=== PATIENT | male | born 1940 | race Caucasian/White ===

== ENCOUNTER 2018-11-30 13:48 | Observation (INO) ==
[2018-11-30] MEDS ORDERED: FUROSEMIDE 20 MG/2 ML VIAL IV STA (14:21)
[2018-11-30] MEDS ORDERED: NITROGLYCERIN 2% OINT 1 INCH/GM PACK TOP STA (14:21)
[2018-11-30] MEDS ORDERED: ASPIRIN 325 MG TABLET PO STA (14:21)
[2018-11-30] MEDS ORDERED: ONDANSETRON 4 MG/2 ML VIAL IV STA (14:21)
[2018-11-30 14:47] LABS: Basophils % 0.3 % (0.0-0.8); Eosinophils % 0.7 % (0.00-10.9); Hematocrit 45.8 VOL% (42.0-52.0); Hemoglobin 14.4 GM/DL (14.0-18.0); Immature Granulocytes % 0.2 %; Immature Granulocytes Absolute 0.01 #; Lymphocytes % 17.7 % (21.2-54.2); Mean Corpuscular HGB Conc 31.4 GM/DL (32-36); Mean Platelet Volume 10.4 FL (9.6-12.0); Monocytes % 16.5 % (1.7-12.7); Neutrophils % 64.6 % (38.7-73.9); Platelet Count 196 T/CUMM (130-400); Red Blood Count 5.09 MC/CUMM (3.8-5.5); Red Cell Distribution Width 14.9 % (9.3-17.3); White Blood Count 5.8 T/CUMM (4-12)
[2018-11-30 14:56] LABS: PT Patient Result 10.8 SECS (9.6-12.2)
[2018-11-30 15:07] LABS: Bilirubin,Total 1.3 MG/DL (0.2-1.0); Calcium 8.6 MG/DL (8.5-10.1); Total Protein 6.2 G/DL (6.4-8.3)
[2018-11-30 15:30] LABS: Lymphocytes 21 % (20-55); Segmented Neutrophils 70 % (50-85); Total Cells Counted 100
[2018-11-30 15:31] LABS: Anisocytosis Slight; Macrocytosis Slight; Microcytosis Slight; Platelet Estimate Normal; Reactive Lymphocytes 1+
[2018-11-30] MEDS ORDERED: POTASSIUM CHLORIDE 20 MEQ TABLET PO PRN (16:08)
[2018-11-30] MEDS ORDERED: MAGNESIUM SULF RIDER 4 GM in PREMIX 1 EACH IV PRN (16:08)
[2018-11-30] MEDS ORDERED: ONDANSETRON 4 MG/2 ML VIAL IV PRN (16:08)
[2018-11-30] MEDS ORDERED: MAGNESIUM SULF RIDER 2 GM in PREMIX 1 EACH IV PRN (16:08)
[2018-11-30] MEDS ORDERED: ENOXAPARIN 100 MG/ML SYRINGE SUBCUT SCH (16:30)
[2018-11-30] MEDS: APIXABAN 5 MG TABLET PO SCH (20:44)
[2018-11-30] MEDS: METOPROLOL SUCCINATE XL 50 MG TABLET PO SCH (20:44)
[2018-11-30] MEDS: FUROSEMIDE 20 MG/2 ML VIAL IV SCH (20:44)
[2018-11-30] MEDS: ACETAMINOPHEN 325 MG TABLET PO PRN (20:48)
[2018-11-30] MEDS ORDERED: ALLOPURINOL 100 MG TABLET PO SCH (21:00)
[2018-11-30] MEDS ORDERED: predniSONE 5 MG TABLET PO SCH (21:00)
[2018-11-30] MEDS ORDERED: FOLIC ACID 1 MG TABLET PO SCH (21:00)
[2018-12-01 05:37] LABS: Basophils % 0.2 % (0.0-0.8); Eosinophils % 0.6 % (0.00-10.9); Hemoglobin 13.8 GM/DL (14.0-18.0); Immature Granulocytes % 0.4 %; Immature Granulocytes Absolute 0.02 #; Lymphocytes # 0.9 10*3/uL (1.4-4.0); Lymphocytes % 17.6 % (21.2-54.2); Mean Corpuscular HGB Conc 31.4 GM/DL (32-36); Monocytes % 12.4 % (1.7-12.7); Neutrophils % 68.8 % (38.7-73.9); Platelet Count 186 T/CUMM (130-400); Red Blood Count 4.89 MC/CUMM (3.8-5.5); Red Cell Distribution Width 14.8 % (9.3-17.3); White Blood Count 5.3 T/CUMM (4-12)
[2018-12-01] MEDS: ACETAMINOPHEN 325 MG TABLET PO PRN ×2 (05:46→15:03)
[2018-12-01 06:14] LABS: Calcium 8.7 MG/DL (8.5-10.1); Osmolality,Calculated 283.3 MOS/KG (273-304); Risk Ratio 3.45; Thyroid Stimulating Hormone 0.327 uIU/ml (0.358-3.74); VLDL CHOLESTEROL 14.2 MG/DL
[2018-12-01] MEDS ORDERED: LEVOTHYROXINE 50 MCG TABLET PO SCH (06:30)
[2018-12-01] MEDS: FUROSEMIDE 20 MG/2 ML VIAL IV SCH (08:51)
[2018-12-01] MEDS: APIXABAN 5 MG TABLET PO SCH (08:52)
[2018-12-01] MEDS: METOPROLOL SUCCINATE XL 50 MG TABLET PO SCH (08:52)
[2018-12-01] MEDS ORDERED: amLODIPine 2.5 MG TABLET PO SCH (09:00)
[2018-12-01] MEDS ORDERED: LISINOPRIL 20 MG TABLET PO SCH (09:00)
[2018-12-01] MEDS ORDERED: ASPIRIN EC 81 MG TABLET PO SCH (09:00)
[2018-12-01] MEDS ORDERED: PANTOPRAZOLE 40 MG TABLET PO SCH (09:00)
[2018-12-01] MEDS ORDERED: hydroCHLOROthiazide 25 MG TABLET PO SCH (09:00)
[2018-12-01 12:43] VITALS: BP 145/84
== END 2018-12-01 15:09 | disposition home or self-care (01) ==
LOC: N.EDINP 13:48 → N.ED 13:48 → N.EDINP 18:08 → N.TELEN 18:12
PROVIDERS: ADMIT Emergency Medicine; ATTEND Emergency Medicine

== ENCOUNTER 2019-04-22 10:41 | Observation (INO) ==
[2019-04-22] MEDS ORDERED: BISACODYL 5 MG TABLET PO PRN (11:22)
[2019-04-22] MEDS ORDERED: ONDANSETRON 4 MG/2 ML VIAL IV PRN (11:22)
[2019-04-22] MEDS ORDERED: ZALEPLON 5 MG CAPSULE PO PRN (11:22)
[2019-04-22] MEDS ORDERED: MAGNESIUM SULF RIDER 4 GM in PREMIX 1 EACH IV PRN (11:22)
[2019-04-22] MEDS ORDERED: LACTULOSE 20 GM/30 ML UDCUP PO PRN (11:22)
[2019-04-22] MEDS ORDERED: MAGNESIUM SULF RIDER 2 GM in PREMIX 1 EACH IV PRN (11:22)
[2019-04-22] MEDS ORDERED: MORPHINE 4 MG/1 ML VIAL IV PRN (11:22)
[2019-04-22] MEDS ORDERED: POTASSIUM CHLORIDE 20 MEQ TABLET PO PRN (11:22)
[2019-04-22] MEDS ORDERED: traMADol 50 MG TABLET PO PRN (11:30)
[2019-04-22 12:35] LABS: Basophils % 0.1 % (0.0-0.8); Eosinophils % 0.1 % (0.00-10.9); Hemoglobin 15.2 GM/DL (14.0-18.0); Immature Granulocytes % 0.5 %; Immature Granulocytes Absolute 0.04 #; Lymphocytes % 12.2 % (21.2-54.2); Mean Corpuscular Volume 89.7 FL (87-102); Mean Platelet Volume 10.5 FL (9.6-12.0); Monocytes % 7.9 % (1.7-12.7); Neutrophils % 79.2 % (38.7-73.9); Platelet Count 204 T/CUMM (130-400); Red Blood Count 5.46 MC/CUMM (3.8-5.5)
[2019-04-22 12:50] LABS: PT Patient Result 11.3 SECS (9.6-12.2); Partial Thromboplastin Time 31.9 SECS (20.8-36.0)
[2019-04-22 13:08] LABS: Albumin 3.6 G/DL (3.4-5.0); Bilirubin,Total 1.4 MG/DL (0.2-1.0); Calcium 9.1 MG/DL (8.5-10.1); Osmolality,Calculated 282.5 MOS/KG (273-304); Total Protein 7.4 G/DL (6.4-8.3)
[2019-04-22] MEDS ORDERED: diphenhydrAMINE CAP 25 MG CAPSULE PO PRN (15:09)
[2019-04-22] MEDS ORDERED: MAGNESIUM HYDROXIDE SUSP 30 ML UDCUP PO PRN (15:09)
[2019-04-22] MEDS: hydrALAZINE 20 MG/1 ML VIAL IV PRN (15:35)
[2019-04-22] MEDS ORDERED: predniSONE 5 MG TABLET PO SCH (21:00)
[2019-04-22] MEDS ORDERED: FOLIC ACID 1 MG TABLET PO SCH (21:00)
[2019-04-22] MEDS ORDERED: allopurinoL 100 MG TABLET PO SCH (21:00)
[2019-04-22] MEDS ORDERED: PANTOPRAZOLE 40 MG TABLET PO SCH (21:00)
[2019-04-22] MEDS ORDERED: ATORVASTATIN 20 MG TABLET PO SCH (21:00)
[2019-04-22] MEDS: ACETAMINOPHEN 325 MG TABLET PO PRN (21:34)
[2019-04-22] MEDS: carvediloL 6.25 MG TABLET PO SCH (21:35)
[2019-04-22] MEDS: POTASSIUM CHLORIDE 8 MEQ CAPSULE PO SCH (21:35)
[2019-04-23 04:57] LABS: Basophils % 0.3 % (0.0-0.8); Eosinophils # 0.1 10*3/uL (0.0-0.87); Hematocrit 45.7 VOL% (42.0-52.0); Hemoglobin 14.6 GM/DL (14.0-18.0); Immature Granulocytes % 0.3 %; Immature Granulocytes Absolute 0.02 #; Mean Corpuscular HGB Conc 31.9 GM/DL (32-36); Mean Corpuscular Volume 88.1 FL (87-102); Mean Platelet Volume 10.8 FL (9.6-12.0); Monocytes % 12.4 % (1.7-12.7); Platelet Count 194 T/CUMM (130-400); Red Blood Count 5.19 MC/CUMM (3.8-5.5); White Blood Count 6.9 T/CUMM (4-12)
[2019-04-23 05:19] LABS: PT Patient Result 10.7 SECS (9.6-12.2); Partial Thromboplastin Time 28.6 SECS (20.8-36.0)
[2019-04-23 05:24] LABS: Calcium 8.5 MG/DL (8.5-10.1); Osmolality,Calculated 279.8 MOS/KG (273-304); Risk Ratio 3.52; VLDL CHOLESTEROL 16.6 MG/DL
[2019-04-23] MEDS ORDERED: LEVOTHYROXINE 50 MCG TABLET PO SCH (07:00)
[2019-04-23] MEDS: POTASSIUM CHLORIDE 8 MEQ CAPSULE PO SCH (08:29)
[2019-04-23] MEDS: ACETAMINOPHEN 325 MG TABLET PO PRN ×2 (08:30→12:31)
[2019-04-23] MEDS: carvediloL 6.25 MG TABLET PO SCH (08:30)
[2019-04-23] MEDS: hydrALAZINE 20 MG/1 ML VIAL IV PRN (08:32)
[2019-04-23] MEDS ORDERED: hydroCHLOROthiazide 25 MG TABLET PO SCH (09:00)
[2019-04-23] MEDS ORDERED: CYANOCOBALAMIN 500 MCG TABLET PO SCH (09:00)
[2019-04-23] MEDS ORDERED: lisinopriL 20 MG TABLET PO SCH (09:00)
[2019-04-23] MEDS ORDERED: FUROSEMIDE 20 MG TABLET PO SCH (09:00)
[2019-04-23] MEDS ORDERED: PANTOPRAZOLE 40 MG TABLET PO SCH (09:00)
[2019-04-23] MEDS ORDERED: carvediloL 12.5 MG TABLET PO SCH (09:14)
[2019-04-23 13:38] VITALS: BP 134/79
[2019-04-25] MEDS ORDERED: METHOTREXATE 2.5 MG TABLET PO SCH (09:00)
== END 2019-04-23 14:30 | disposition home or self-care (01) ==
LOC: N.TELEN
PROVIDERS: ADMIT Internal Medicine Cardiovascular Disease; ATTEND Internal Medicine Cardiovascular Disease